=== PATIENT | male | born 1980 | race Two or more races ===

== ENCOUNTER 2023-10-06 11:14 | Emergency (ER) | payer OTHER ==
[~2023-10-06] VITALS: Ht 182.9 cm; Wt 93.4 kg
[2023-10-06] MEDS ORDERED: DEXAMETHASONE SODIUM PHOSPHATE 4 MG/ML VIAL IM STA (12:00)
[2023-10-06] MEDS ORDERED: KETOROLAC TROMETHAMINE 30 MG VIAL IM ONE (12:00)
== END 2023-10-06 14:50 | disposition home or self-care (01) ==
LOC: ER 11:14
DX: M79.672 Pain in left foot (principal)